=== PATIENT | male | born 1955 | race Caucasian/White ===

== ENCOUNTER → 2020-12-20 01:18 | Outpatient (CLI) | payer MEDICARE, MEDICAID, SELFPAY ==
[2020-12-20 18:53] LABS: SARS-CoV-2 RNA PCR Negative
== END ==
PROVIDERS: PCP Internal Medicine; Visit Provider Internal Medicine Gastroenterology
DX: Z01.812 Encounter for preprocedural laboratory examination (principal); Z20.822 Contact with and (suspected) exposure to COVID-19
CPT/HCPCS: C9803; U0003; U0005

== ENCOUNTER 2021-06-09 11:18 | Outpatient (CLI) | payer MEDICARE, MEDICAID, SELFPAY ==
--- NOTE | 2021-06-09 11:26 | ECG_ITS ---
Measurements Intervals [place] Rate: 85 P: 66 NH: 153 QRS: 63 QRSD: 105 T: 43 QT: 362 QTc: 431 Interpretive Statements SINUS RHYTHM VENTRICULAR PREMATURE COMPLEX POSSIBLE LEFT ATRIAL ENLARGEMENT BORDERLINE T WAVE ABNORMALITY- INFERIOR LEADS BASELINE ARTIFACT- I, II, AVR, AVL, AVF BORDERLINE ECG Electronically Signed On 06-09-2021 12:17:31 CDT by Finesse Mccormack D.O.
== END 2021-06-09 11:19 | disposition home or self-care (01) ==
LOC: ANHSURGERY 11:22
PROVIDERS: PCP Internal Medicine; Visit Provider Surgery
DX: K40.90 Unilateral inguinal hernia, without obstruction or gangrene, not specified as recurrent (principal); I10 Essential (primary) hypertension; Z01.818 Encounter for other preprocedural examination; R94.31 Abnormal electrocardiogram [ECG] [EKG]
CPT/HCPCS: 36415; 86850; 86900; 86901; 93005

== ENCOUNTER → 2021-06-13 00:33 | Outpatient (CLI) | payer MEDICARE, MEDICAID, SELFPAY ==
[2021-06-13 19:34] LABS: SARS-CoV-2 RNA PCR Negative
== END ==
PROVIDERS: PCP Internal Medicine; Visit Provider Surgery
DX: Z01.812 Encounter for preprocedural laboratory examination (principal); Z20.822 Contact with and (suspected) exposure to COVID-19
CPT/HCPCS: C9803; U0003; U0005

== ENCOUNTER 2021-06-17 02:49 | Day surgery (SDC) | payer MEDICARE, MEDICAID, SELFPAY ==
[2021-06-05 10:33] VITALS: BMI 31.2
--- NOTE | 2021-06-16 15:06 | WPDANESEPPF ---
Anes - Initial Pre Proc Eval Procedure: Operation Date: 06/17/21 13:00 Proposed Procedures p Laparoscopic Recurrent Right Inguinal Hernia Repair with Mesh Davinci Assisted - Brandon Carty DO Date/Time: 06/16/21 15:06 Surgeon: Brandon Carty DO Pre Op Diagnosis: recurrent right inguinal hernia Patient Data Age: 65 Gender: M Height: 1.91 m Weight: 113.4 kg Allergies Allergy/AdvReac Type Severity Reaction Status Date / Time No Known Allergies Allergy Verified 06/05/21 10:16 Home Medications Medication Instructions Recorded Confirmed Type lisinopril 20 mg tablet 20 mg PO DAILY #90 tablet 02/19/20 06/05/21 Rx metoprolol succinate 25 mg PO QAM 06/05/21 06/05/21 History Patient hx anesthesia problems: none Family hx anesthesia problems: none Results Review: All pre-operative results and documents have been reviewed as part of the pre-operative evaluation. [facility], LAT[facility] Past Medical History Medical History Allergies Arthritis Chronic pain COPD (chronic obstructive pulmonary disease) GERD (gastroesophageal reflux disease) Hypertension Left wrist tendonitis 2018 Right inguinal hernia Tobacco abuse Surgical History Surgical History History of bilateral carpal tunnel release S/P trigger finger release Status post bilateral knee replacements Family History Family History Mother Family history of lung cancer Father Brain tumor Sibling Heart attack Unknown Hypertension Cancer Social History Social History Smoking packs per day: 0.5 Smoking cigarettes per day: 10.0 Years smoked: 30 Smoking pack-years: 15.00 Smoking status: Current every day smoker Tobacco type: cigarettes Alcohol intake: current Drinks per week: 10 Alcohol use details: Pt drinks 2 beers weekly. Substance use type: marijuana Other substance usage details: ONCE OR TWICE A MONTH Last use: Living arrangements: alone Spiritual care concerns: No Anes - Eval Final PreProcedure Day of Procedure 06/16/21 15:06 Patient weight: obese Heart: regular rate and rhythm Lungs: clear to auscultation and normal air movement Airway: Mallampati scale class II Neurological: alert and oriented Last oral intake: >/= 8 hours ASA classification: III Emergent: no Anesthetic plan: proceed Anesthesia type and monitoring: general ETT and standard monitoring Results Review: All pre-operative results and documents have been reviewed as part of the pre-operative evaluation. Informed Consent: The patient's anesthetic plan and its attendant risks and benefits were discussed with the patient/family/POA. Questions were solicited and answers provided to the satisfaction of the patient/family/POA.
[2021-06-17] VITALS (7 sets, daily range): BP systolic 156–181; BP diastolic 90–98; PULSE 70–93; RESP 16–24; TEMP 36.3–36.8; O2SAT 92–99
[2021-06-17] MEDS: ACETAMINOPHEN 500 MG TABLET 1000 MG PO (11:35)
[2021-06-17] MEDS: LACTATED RINGERS 1,000 ML 30 ML IV CONT ×2 (11:38→14:21)
[2021-06-17] MEDS: KETOROLAC 15 MG/ML VIAL (*BKC) IV PUSH (11:39)
--- NOTE | 2021-06-17 12:30 | WPDHPUPDATE1 ---
History and Physical Update Update Date/Time: 06/17/21 12:30 History and Physical has been reviewed, including an updated exam of the patient. There are NO changes in the patient's condition. Risks, benefits, and alternatives have been discussed and questions answered. Patient agrees to proceed with procedure.
[2021-06-17] MEDS: ceFAZolin 2 GM/D5W 50 ML 2 GM/50 ML BAG IVPB (13:01)
[2021-06-17] MEDS: BUPIVACAINE HCL 0.5% PF 30 ML VIAL INFILTRATE (13:30)
--- NOTE | 2021-06-17 14:17 | W.PM.PROC2 ---
Procedure Note - Detailed Date of Procedure 06/17/21 Pre-op Diagnosis recurrent right inguinal hernia Post-op Diagnosis same (Small indirect recurrent right inguinal hernia) Procedure Performed Laparoscopic recurrent right inguinal hernia repair with mesh, da Alondra assisted Surgeon Brandon Carty, Anesthesia general and local (0.5% bupivacaine) Indications This is a 65-year-old man who presented with right groin and scrotal pain for the past several years. He has been seen by Orthopedics for arthritis related problems. He has tried corticosteroid injections in the past but he continues to have groin pain that radiates to his scrotum. An MRI was previously done and this showed evidence of osteoarthritis and chronic hamstring avulsion. On exam he had a slight weakness palpable in the right groin region. The patient does have a history of an open right inguinal hernia repair in the s, and he thinks that it was repaired without mesh. I had discussed with the patient that this may not be the cause of all his pain and it may be more related to his hip and hamstring issues. Discussions were made with the patient about treatment options and decision was made to proceed with a robotic assisted laparoscopic recurrent right inguinal hernia. Findings Laparoscopic recurrent right inguinal hernia repair was performed. The patient had evidence of a very small right indirect defect. There was no evidence of left inguinal hernia. A robotic assisted repair was performed. An extra-large right Bard 3DMax mesh was placed within the preperitoneal pocket overlying the entire right myopectineal orifice. No specimens were obtained for pathology. Description of Procedure Procedure as well as risks, benefits, and alternatives were discussed with the patient. Written consent was obtained and placed in chart prior to procedure. Patient was brought back to surgical suite. He was placed supine on operating table. Time-out was done to confirm patient and procedure. He was then intubated by Anesthesia Department. His abdomen was prepped and draped in sterile fashion using chlorhexidine prep. 0.5% bupivacaine with epinephrine was infiltrated at each location for incision. An 8 mm incision was made in the left lateral abdomen, and a 5 mm Optiview trocar was advanced through the abdominal layers under direct visualization. Once inside the abdominal cavity, carbon dioxide insufflation was used to create a pneumoperitoneum. A camera was inserted and the abdominal cavity was inspected. The patient was placed in slight Trendelenburg position. An 8 millimeter incision was made on the right lateral abdomen and an 8 millimeter trocar was inserted under direct visualization. Another 8 millimeter incision was made just superior to the umbilicus and an 8 millimeter trocar was inserted under direct visualization. The 5 mm port was then removed and this was replaced with another 8 mm robotic port. The robotic arms were brought up to the patient's bedside and secured to the ports. The camera and instruments were inserted. I then moved over to the robotic console and took control of the camera and instruments. After careful inspection of the abdominal cavity, I began scoring the peritoneum along the right lower quadrant using scissors with electrocautery. The preperitoneal plane was entered and this was carefully dissected caudally along the inferior epigastric vessels. Careful dissection with scissors with electrocautery and blunt dissection was used to continue this dissection. I dissected far enough laterally to allow for mesh placement, and also dissected medially to identify the pubic arch and Domenico's ligament. The hernia sac was identified and carefully dissected posteriorly. The cord contents were also identified and the peritoneum was carefully dissected far enough posteriorly to allow for mesh placement. Once an adequate pocket was created, I then placed the mesh within the
[2021-06-17] MEDS: fentaNYL CITRATE INJ (*CRX) 100 MCG/2 ML VIAL 25 MCG IV PUSH ×4 (14:36→14:46)
[2021-06-17] MEDS: oxyCODONE HCL (*CRX) 5 MG TAB IR PO (15:38)
== END 2021-06-17 16:32 | disposition home or self-care (01) ==
PROVIDERS: PCP Internal Medicine; Visit Provider Surgery
PROC: 8E0Y4CZ Robotic Assisted Procedure of Lower Extremity, Percutaneous Endoscopic Approach (ICD-10-PCS; CPT 49650; principal; 2021-06-17 13:00)
DX: K40.91 Unilateral inguinal hernia, without obstruction or gangrene, recurrent (principal); J44.9 Chronic obstructive pulmonary disease, unspecified; I10 Essential (primary) hypertension; K21.9 Gastro-esophageal reflux disease without esophagitis; F17.210 Nicotine dependence, cigarettes, uncomplicated; F12.90 Cannabis use, unspecified, uncomplicated; E66.9 Obesity, unspecified; Z68.31 Body mass index [BMI] 31.0-31.9, adult
CPT/HCPCS: 49651; S2900; A9270; J0330; J0690; J1100; J1885; J2250; J2270; J2405; J2704; J3010; J7120

== ENCOUNTER 2021-07-07 12:34 | Outpatient (CLI) | payer MEDICARE, MEDICAID, SELFPAY ==
--- NOTE | ~2021-07-07 | XR_ITS ---
EXAMINATION: XR lg joint inject/asp w image DATE: 07/07/2021 13:26 INDICATION: Right hip arthritis. TECHNIQUE: A time-out was performed to verify the patient's name, date of , and procedure to b e performed. The procedure including the risks, benefits, and alternatives was discussed with the pat ient. Risks discussed included bleeding and infection. The patient understood the risks and agreed to proceed. The skin overlying the right hip joint was prepped and draped in usual sterile fashion. A nesthetic was administered with 1% lidocaine subcutaneously. A 22 G needle was advanced under fluoro scopic guidance into the joint. Injection of 1 mL of Omnipaque 240 confirmed intra-articular positio n of the needle. Subsequently, injectate consisting of 2 mL 0.5% bupivacaine and 1 mL 80 mg/mL Depo- Medrol was instilled. The needle was removed and the entry site was cleaned and dressed. There were no immediate complications. Fluoroscopy exposure time was 0.1 minutes. The total number of images wa s 2. FINDINGS: Real-time fluoroscopy demonstrates the needle in the right hip joint. Patient's pain prior to procedure:03/21. Patient's pain following the procedure: 11/19. IMPRESSION: 1. Fluoroscopy guided right hip joint injection of local anesthetic and steroid with decrease in the patient's presenting pain. Reviewed, dictated and finalized at location A.
== END 2021-07-07 12:35 | disposition home or self-care (01) ==
LOC: ANHIMG 12:35
PROVIDERS: PCP Internal Medicine; Visit Provider Orthopaedic Surgery
DX: M16.11 Unilateral primary osteoarthritis, right hip (principal)
CPT/HCPCS: 20610; 77002; J1040; Q9966

== ENCOUNTER 2022-07-08 06:52 | Outpatient (CLI) | payer MEDICARE, MEDICAID, SELFPAY ==
[2022-07-08 07:30] LABS: Basophils Absolute Auto 0.1 K/mm3 (0.0-0.1); Basophils Percent Auto 0.8 % (0.2-1.2); Eosinophils Absolute Auto 0.2 K/mm3 (0-0.3); Eosinophils Percent Auto 1.7 % (0-4.4); Hematocrit 50.6 % (42.0-52.0); Immature Granulocyte Absolute 0.03 K/mm3 (0.00-0.031); Immature Granulocyte Percent A 0.3 % (0-0.5); Lymphocytes Absolute Auto 1.76 K/mm3 (0.9-3.2); Lymphocytes Percent Auto 19.8 % (18.3-44.2); Mean Corpuscular HGB Conc 33.6 g/dl (32-36); Mean Corpuscular Hemoglobin 32.1 pg (26-34); Mean Corpuscular Volume 95.7 fl (80-100); Mean Platelet Volume 8.8 fl (7.4-10.4); Monocytes Absolute Auto 1.1 K/mm3 (0.1-0.6); Monocytes Percent Auto 12.7 % (2.6-8.5); Neutrophils Absolute Auto 5.8 K/mm3 (1.3-6.7); Neutrophils Percent Auto 64.7 % (45.5-73.1); Platelet Count Result 190 k/mm3 (150-375); Red Blood Count 5.29 M/mm3 (4.6-6.20); White Blood Count 8.9 K/mm3 (4.5-10.0)
[2022-07-08 07:31] LABS: Alanine Aminotransferase 20 U/L (6-50); Albumin Level 4.5 g/dL (3.5-5.1); Alkaline Phosphatase 70 U/L (38-126); Anion Gap 7 mmol/L (8-16); Aspartate Amino Transferase 21 U/L (17-59); Bilirubin,Total 0.8 mg/dL (0.2-1.3); Blood Urea Nitrogen 9 mg/dL (9-20); Carbon Dioxide 28 mmol/L (22-30); Chloride 104 mmol/L (98-107); Cholesterol 176 mg/dL (0-200); Estimated Glomerular Filt Rate > 60; Glucose 107 mg/dL (65-110); HDL Direct 57 mg/dL; Potassium 4.3 mmol/L (3.4-5.0); Sodium 139 mmol/L (137-145); Triglycerides 60 mg/dL (<150)
[2022-07-08 07:42] LABS: LDL Cholesterol Direct 95 mg/dL
[2022-07-08 08:02] LABS: Prostate Specific Antigen 1.9 ng/mL (< OR = 4.0)
== END 2022-07-08 06:53 | disposition home or self-care (01) ==
LOC: ANHLAB 06:55
PROVIDERS: PCP Internal Medicine; Visit Provider Nurse Practitioner
DX: R89.9 Unspecified abnormal finding in specimens from other organs, systems and tissues (principal); Z13.29 Encounter for screening for other suspected endocrine disorder; Z13.220 Encounter for screening for lipoid disorders; Z12.5 Encounter for screening for malignant neoplasm of prostate; I10 Essential (primary) hypertension
CPT/HCPCS: 36415; 80053; 80061; 84153; 85025; G0103

== ENCOUNTER → 2022-11-17 14:11 | Outpatient (CLI) | payer MEDICARE, MEDICAID, SELFPAY ==
--- NOTE | ~2022-11-17 | XR_ITS ---
XR lumbar spine 2-3V DATE: 11/17/2022 14:23 INDICATION: Bending injury one week ago. Low back pain, right leg pain. TECHNIQUE: AP, lateral, coned lateral lumbosacral views COMPARISON: None FINDINGS: Prominent degenerative spurring of the lower thoracic spine and moderately prominent degene rative spurring of the lumbar spine. Lumbar interspaces are relatively preserved. No fracture or bone destruction is evident. Lumbar pedicles are intact. No spondylolisthesis. The sac roiliac joints are preserved. IMPRESSION: Degenerative spurring of the lower thoracic and lumbar spine; no fracture Reviewed, dictated and finalized at location B. K SERVICE TECHNICIAN IMPRESSION: Degenerative spurring of the lower thoracic and lumbar spine; no fr acture
== END ==
PROVIDERS: PCP Internal Medicine; Visit Provider Nurse Practitioner
DX: M54.50 Low back pain, unspecified (principal); M79.661 Pain in right lower leg
CPT/HCPCS: 72100